=== PATIENT | female | born 1985 | race Caucasian/White ===

== ENCOUNTER 2017-07-10 08:12 | Emergency (ER) | payer BC ==
[2017-07-10 08:31] VITALS: BP 124/83; TEMP 98.7; O2SAT 100
--- NOTE | 2017-07-10 08:48 | ED.PDOC ---
History of Present Illness - General Chief Complaint: Abdominal Pain Stated Complaint: R flank discomfort Time Seen by Provider: 07/10/17 08:44 Source: patient, RN notes reviewed Additional Information: 32 YEAR OLD PRESENTS WITH RIGHT FLANK PAIN LAST DAY ASSOCIATED WITH MOVEMENTS SHE IS A YOUNG HEALTHY ACTIVE LADY WHO DOES CROSS FIT ( HOWEVER HAS NOT DONE ANY EXERTION FOR THE LAST 3 WEEKS SHE HAS HAD KIDNEY STONES THEREFORE SHE IS CONCERNED ABOUT THE POSSIBILITY OF A RECURRENT STONE SHE DOES NOT HAVE ANY FEVER CHILLS OR DISCOMFORT WITH URINATION NO NAUSEA NO RADIATION OF PAIN IT IS LOCALISED TO RIGHT PARA SPINAL MUSCULATURE - History of Present Illness Timing/Duration: 24 hours Severity: mild Improving Factors: nothing Worsening Factors: movement Associated Symptoms: denies symptoms Allergies/Adverse Reactions: Allergies Fexofenadine [From Verito] Allergy (Unknown, Verified 07/10/17 08:32) Rash Home Medications: Ambulatory Orders Azithromycin 500 mg PO DAILY #0 tab 08/18/13 Cyclobenzaprine HCl [Flexeril] 10 mg PO TID #30 tab 07/10/17 Naproxen [Naprosyn] 500 mg PO BID #20 tab 07/10/17 Review of Systems - Review of Systems Constitutional: States: no symptoms reported EENTM: States: no symptoms reported Respiratory: States: no symptoms reported Cardiology: States: no symptoms reported Gastrointestinal/Abdominal: States: no symptoms reported Genitourinary: States: no symptoms reported Musculoskeletal: States: back pain Skin: States: no symptoms reported Neurological: States: no symptoms reported Endocrine: States: no symptoms reported Hematologic/Lymphatic: States: no symptoms reported Past Medical History (General) - Patient Medical History Hx Stroke: No Hx Congestive Heart Failure: No Hx Diabetes: No Hx Renal Disease: No Hx MRSA: No Surgical History: no surgical history - Vaccination History Hx Influenza Vaccination: Yes - 2017 Hx Pneumococcal Vaccination: No - Social History Hx Tobacco Use: No Hx Substance Use: No - Female History Patient is a Female of Child Bearing Age (10 -59 yrs old): Yes Hx Last Menstrual Period: 11/14/12 Patient : No Expected Date of Delivery:: 08/21/13 Family Medical History - Family History Mother Family History: No Known Living Status: Still Living Physical Exam - Physical Exam General Appearance: Alert, Well Developed, Well Groomed, Well Hydrated, Well Nourished Eye Exam: left normal Ears, Nose, Throat: hearing grossly normal Neck: non-tender, full range of motion Respiratory: chest non-tender, lungs clear Cardiovascular/Chest: normal peripheral pulses, regular rate, rhythm, no edema, no gallop, no JVD Gastrointestinal/Abdominal: normal bowel sounds, non tender, soft, no organomegaly, no pulsatile mass Back Exam: no CVA tenderness, no vertebral tenderness, muscle spasm 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 Copy, Patient Portal Self Enrollment Instructions: DI for Abdominal Pain-Adult Diet: full liquid diet, diabetic diet, regular diet Activity: walking as tolerated Referrals: Chai Walters MD [Primary Care Provider] - 1-2 Weeks Home Medications: Ambulatory Orders Azithromycin 500 mg PO DAILY #0 tab 08/18/13 Cyclobenzaprine HCl [Flexeril] 10 mg PO TID #30 tab 07/10/17 Naproxen [Naprosyn] 500 mg PO BID #20 tab 07/10/17
== END 2017-07-10 09:05 | disposition home or self-care (01) ==
LOC: ER 08:12
DX: R10.9 Unspecified abdominal pain (principal); M62.838 Other muscle spasm; Z88.8 Allergy status to other drugs, medicaments and biological substances

== ENCOUNTER → 2018-10-04 | Outpatient (CLI) | payer BC | LOC: GMAJS 14:45 | PROVIDERS: ATTEND Physician Assistant | DX: Z00.00 Encounter for general adult medical examination without abnormal findings (principal) ==